=== PATIENT | male | born 1965 | race Caucasian/White ===

== ENCOUNTER 2022-02-13 08:00 | Outpatient (CLI) | payer BC, OTHER ==
--- NOTE | 2022-02-14 15:06 | XRAY Report ---
PROCEDURE: Finger(s) LT INDICATIONS: FLEXION DEFORMITY OF L 3RD FINGER TECHNIQUE: AP hand, 2 views of the right hand third digit acquired. COMPARISON: None. FINDINGS: Bones: No fractures or dislocations. No suspicious bony lesions. Soft tissues: No suspicious soft tissue calcifications. IMPRESSION: No acute osseous abnormality. If symptoms persist, follow-up radiographs and/or CT may be helpful for further evaluation. Reviewed by: Rogerio Steele MD on 02/14/2022 3:05 PM PDT Approved by: Rogerio Steele MD on 02/14/2022 3:05 PM PDT Station ID: [id number]
== END 2022-02-13 23:59 | disposition home or self-care (01) ==
LOC: DI.N 08:00
PROVIDERS: ATTEND Nurse Practitioner
DX: M21.2 Flexion deformity (principal)

== ENCOUNTER 2022-03-02 08:00 | Outpatient (CLI) | payer OTHER ==
--- NOTE | 2022-03-02 17:03 | XRAY Report ---
PROCEDURE: Finger(s) LT INDICATIONS: LEFT 3RD FINGER INJURY TECHNIQUE: AP hand, 3 views of the third finger(s) acquired. COMPARISON: X-ray fingers 02/13/2022 FINDINGS: Bones: No fractures or dislocations. No suspicious bony lesions. Soft tissues: No suspicious soft tissue calcifications. IMPRESSION: No visualized acute fracture or dislocation. However, occult injury cannot be excluded. Recommend ofelia rt interval imaging follow-up in 7-10 days as clinically indicated for additional evaluation. Reviewed by: Rosalie Quarlse MD on 03/02/2022 5:02 PM PDT Approved by: Rosalie Quarles MD on 03/02/2022 5:02 PM PDT Station ID: [id number]
== END 2022-03-02 23:59 | disposition home or self-care (01) ==
LOC: DI.WOS 08:00
PROVIDERS: ATTEND Physician Assistant
DX: M21.242 Flexion deformity, left finger joints (principal)